=== PATIENT | female | born 1965 | race Caucasian/White ===

== ENCOUNTER → 2017-03-30 | Outpatient (CLI) | payer BC ==
[2015-07-24 15:05] VITALS: BP 135/69
[~2017-03-30] MED LIST: CHOL10003 PO; DULO30CA2 PO; TRIA15CR2 TP
--- NOTE | 2017-03-30 13:13 | RAD ---
DATE: 03/30/2017 EXAM: MAMMO BHARGAV SCREENING BILATERAL HISTORY: Routine screening COMPARISON: 07/07/2015 This study was interpreted with the benefit of Computerized Aided Detection (CAD). The breast parenchyma shows scattered fibroglandular densities. Breast parenchyma level B. FINDINGS: 2-D and 3-D tomosynthesis imaging was performed in CC and MLO projections. There is a benign-appearing lymph node type density in the posterolateral aspect of the left breast. No new or enlarging breast densities are seen. No suspicious microcalcifications are evident. IMPRESSION: Stable mammograms without evidence of malignancy. BI-RADS CATEGORY: 2 BENIGN FINDING(S) RECOMMENDED FOLLOW-UP: 12M 12 MONTH FOLLOW-UP PQRS compliance statement: Patient information was entered into a reminder system with a target due date for the next mammogram. Mammography is a sensitive method for finding small breast cancers, but it does not detect them all and is not a substitute for careful clinical examination. A negative mammogram does not negate a clinically suspicious finding and should not result in delay in biopsying a clinically suspicious abnormality. "Our facility is accredited by the [employer] Mammography Program."
== END | disposition home or self-care (01) ==
LOC: MAMMO 07:49
PROVIDERS: ATTEND Nurse Practitioner Family
DX: Z12.31 Encounter for screening mammogram for malignant neoplasm of breast (principal)
CPT/HCPCS: 77063; G0202; 77067

== ENCOUNTER → 2017-07-12 | Outpatient (CLI) | payer BC ==
[2015-07-24 15:05] VITALS: BP 135/69
[~2017-07-12] MED LIST changes: +IOHEXOL 240 MG/ML 50ML VIAL. ONE; +IOHEXOL 240 MG/ML 50ML VIAL. PO ONE; +IOHEXOL 300 MG/ML 75 ML VIAL. IV ONE
--- NOTE | 2017-07-12 14:50 | RAD ---
CT abdomen and pelvis with contrast Indication: epigastric pain after sneezing for 6 months Omni 300 75c Omni 240 30cc. . Technique: Intravenous contrast is given. No oral contrast as per request. Comparison:None available Exposure: One or more of the following individualized dose reduction techniques were utilized for this examination: 1. Automated exposure control 2. Adjustment of the mA and/or kV according to patient size 3. Use of iterative reconstruction technique. FINDINGS: Lower thorax: Lung bases are clear. Pneumoperitoneum:No gross pneumoperitoneum. Liver: Tiny low-density lesion at the anterior right lobe of the liver measures 4 mm, too small to characterize but likely benign. Hepatic calcifications. Spleen: Unremarkable Pancreas: Unremarkable Adrenals:No evidence of mass. Kidneys:Unremarkable Gallbladder: Surgically absent Aorta: Abdominal aorta is nonaneurysmal Lymph nodes: No significant enlargement GI tract: No bowel obstruction. No paracolonic inflammation. Appendix: Not visualized Ascites: No gross ascites. Urinary bladder: Not opacified, but no apparent abnormality. No evidence of pelvic mass. Bones: Mild degenerative spondylosis. IMPRESSION: No acute findings in the abdomen or pelvis. Electronically signed by: Gideon Salguero MD (07/12/2017 2:47 PM) [id number]
== END | disposition home or self-care (01) ==
LOC: RAD 12:58
PROVIDERS: ATTEND Nurse Practitioner Family
DX: K76.9 Liver disease, unspecified (principal); M47.899 Other spondylosis, site unspecified; R10.13 Epigastric pain; Z90.49 Acquired absence of other specified parts of digestive tract
CPT/HCPCS: 74177; Q9966; Q9967

== ENCOUNTER → 2017-08-12 | Outpatient (CLI) | payer BC ==
[2015-07-24 15:05] VITALS: BP 135/69
[~2017-08-12] MED LIST changes: -IOHEXOL 240 MG/ML 50ML VIAL. ONE; -IOHEXOL 240 MG/ML 50ML VIAL. PO ONE; -IOHEXOL 300 MG/ML 75 ML VIAL. IV ONE
--- NOTE | 2017-08-12 11:42 | RAD ---
Gastric emptying study 08/12/2017 Indication: Nausea, vomiting, and epigastric pain x3 weeks Discussion: Imaging over the abdomen was performed following the oral administration of 2.1 mCi of technetium 99m labeled sulfur colloid administered with a solid meal. Gastric emptying half-time was calculated. Gastric imaging half-time is estimated 323 minutes (normal is 30 to 90 minutes). No evidence of reflux of radiotracer into the esophagus is identified. Impression: Delayed gastric emptying
== END | disposition home or self-care (01) ==
LOC: NM 08:43
PROVIDERS: ATTEND Internal Medicine Gastroenterology
DX: K30 Functional dyspepsia (principal)
CPT/HCPCS: 78264; A9541

== ENCOUNTER → 2020-08-18 | Outpatient (CLI) | payer BC ==
[2015-07-24 15:05] VITALS: BP 135/69
[~2020-08-18] MED LIST changes: +IOHEXOL 240 MG/ML 50ML VIAL. ONE; +IOHEXOL 300 MG/ML 75 ML VIAL. IV ONE
--- NOTE | 2020-08-18 14:46 | RAD ---
EXAMINATION: CT ABDOMEN+PELVIS W (CT ABDOMEN/PELVIS WITH IV CONTRAST) CLINICAL HISTORY: Abdominal pain TECHNIQUE: CT of the abdomen and pelvis was performed using standard technique, scanning from just ab ove the dome of the diaphragm to the symphysis pubis following administration of intravenous contrast . CT Dose Reduction Employed: One or more of the following individualized dose reduction techniques wer e utilized for this examination: 1. Automated exposure control 2. Adjustment of the mA and/or kV ac cording to patient size 3. Use of iterative reconstruction technique. COMPARISON: CT abdomen/pelvis 07/12/2017 FINDINGS: Subpleural curvilinear opacity in the dependent right lung base, nonspecific but may represent subseg mental atelectasis. Multiple small calcifications in the liver and spleen, compatible with old granulomatous disease. Mil d hypoattenuation of the hepatic parenchyma surrounding the falciform ligament, compatible with focal fatty infiltration. Previously noted small hypodensity in the anterior right hepatic lobe was not de finitively visualized on this exam. Cholecystectomy. Pancreas and adrenal glands unremarkable. Kidneys unremarkable. Mildly filled urinary bladder. Uterus and adnexa within normal limits for patient's age. No bowel dilation or definite wall thickening. Normal appendix. No abdominal aortic or iliac artery aneurysm. No lymphadenopathy. Mild thoracolumbar degenerative changes. IMPRESSION: No evidence of acute abdominopelvic abnormality. Electronically signed by: Edinson Kinney DO (08/18/2020 2:43 PM) [id number]
== END ==
LOC: CT 11:53
PROVIDERS: ATTEND Family Medicine
DX: D73.89 Other diseases of spleen (principal); K76.89 Other specified diseases of liver; M47.815 Spondylosis without myelopathy or radiculopathy, thoracolumbar region
CPT/HCPCS: 74177; Q9967